=== PATIENT | female | born 1955 | race Hispanic/Latino ===

== ENCOUNTER 2023-02-19 15:34 | Outpatient (CLI) | payer OTHER | END 2023-02-19 15:35 | disposition home or self-care (01) | LOC: CSHMRI 15:34 | PROVIDERS: ATTEND Orthopaedic Surgery | DX: M23.92 Unspecified internal derangement of left knee (principal); S83.242A Other tear of medial meniscus, current injury, left knee, initial encounter; M94.8X6 Other specified disorders of cartilage, lower leg; R93.6 Abnormal findings on diagnostic imaging of limbs; M25.462 Effusion, left knee; M71.22 Synovial cyst of popliteal space [Baker], left knee ==